=== PATIENT | male | born 1935 | race Caucasian/White ===

== ENCOUNTER → 2016-09-09 | Outpatient (CLI) | payer OTHER ==
[2016-09-09 17:30] LABS: BASOPHILS # (AUTO) 0.06 10*3/UL; BASOPHILS % (AUTO) 0.8 % (0-1); EOSINOPHILS % (AUTO) 4.3 % (0-8); HEMATOCRIT 52.7 % (42.0-52.0); HEMOGLOBIN 17.5 g/dL (14.0-18.0); IMM GRAN % (AUTO) 0.8 % (0-5); IMM GRAN# (AUTO) 0.06 10*3/UL; LYMPHOCYTES # (AUTO) 3.17 10*3/uL; LYMPHOCYTES % (AUTO) 43.6 % (10-50); MEAN CORPUSCULAR HEMOGLOBIN 30.1 PG (27-31); MEAN CORPUSCULAR HGB CONC 33.2 g/dL (33-37); MEAN PLATELET VOLUME 11.9 FL (7.4-12.2); MONOCYTES # (AUTO) 0.61 10*3/UL (0.3-0.8); MONOCYTES % (AUTO) 8.4 % (5-15); NEUTROPHILS # (AUTO) 3.06 10*3/UL; NEUTROPHILS % (AUTO) 42.1 % (50-80); RDW COEFFICIENT OF VARIATION 14.4 % (11.5-14.5); RED BLOOD COUNT 5.81 10^6/uL (4.70-6.10); WHITE BLOOD COUNT 7.27 10^3/uL (4.8-10.8)
[2016-09-09 17:37] LABS: PLATELET MORPHOLOGY COMMENT NORMAL MORPHOLOGY (NORM)
[2016-09-09 17:39] LABS: BILIRUBIN,TOTAL 0.9 mg/dL (0.3-1.2); BUN/CREATININE RATIO 19.09 (6-20); CALCIUM 9.6 mg/dL (8.7-10.7); CREATININE 1.1 mg/dL (0.70-1.50); TOTAL PROTEIN 7.2 g/dL (6.1-8.0)
[2016-09-11 10:22] LABS: PSAFREE 0.1 ng/mL (()); PSATOTAL 0.25 ng/mL (<=7.2)
== END ==
LOC: LAB 08:33
PROVIDERS: ATTEND Physician Assistant Medical
DX: I10 Essential (primary) hypertension (principal); E83.42 Hypomagnesemia; R39.15 Urgency of urination; E55.9 Vitamin D deficiency, unspecified; E78.5 Hyperlipidemia, unspecified
CPT/HCPCS: 80053; 80061; 82652; 83735; 84153; 84154; 84443; 85025

== ENCOUNTER → 2017-02-03 | Outpatient (CLI) | payer OTHER ==
--- NOTE | 2017-02-03 17:20 | DI ---
XR WRIST COMPLETE MIN 3VW,02/03/2017 11:57 AM: Clinical History: Ganglion cyst of the volar aspect of the right wrist. Previous Exam: None at this facility. Findings: 3 views of the right wrist are obtained, and demonstrate anatomic alignment without fractures. The brady rrounding soft tissues are unremarkable. Impression: Normal right wrist.
== END ==
LOC: ORTHO 12:08
PROVIDERS: ATTEND Orthopaedic Surgery
DX: M67.431 Ganglion, right wrist (principal)
CPT/HCPCS: 73110; 99203; G0463